=== PATIENT | male | born 1945 | race Caucasian/White ===

== ENCOUNTER 2017-11-07 10:43 | Emergency (ER) | payer MEDICARE ==
[~2017-11-07] VITALS: Ht 193 cm; Wt 95.0 kg
[2017-11-07] MEDS ORDERED: ALLO300T PO (11:03)
[2017-11-07] MEDS ORDERED: ATOR-2 PO (11:03)
[2017-11-07] MEDS ORDERED: IRBE1TAB13 PO (11:04)
[2017-11-07] MEDS ORDERED: CHOL2000 PO (11:04)
[2017-11-07] MEDS ORDERED: GABA-827 PO (11:04)
[2017-11-07] MEDS ORDERED: MULT-516 PO (11:05)
[2017-11-07] MEDS ORDERED: TURM500C7 PO (11:05)
[2017-11-07] MEDS ORDERED: OMEG-14 PO (11:06)
[2017-11-07] MEDS ORDERED: [UNRECOGNIZED DRUG - CODE] PO (11:06)
[2017-11-07] MEDS ORDERED: OMEG1CAP23 PO (11:06)
[2017-11-07] MEDS ORDERED: CYAN1TAB29 PO (11:07)
[2017-11-07] MEDS ORDERED: BIOT1TAB3 PO (11:07)
[2017-11-07 12:14] VITALS: BP 144/78
[2017-11-07] MEDS ORDERED: PLEASE ENTER ALLERGIES MC SCH (13:56)
[2017-11-07] MEDS ORDERED: ACETAMINOPHEN 325 MG TABLET ONE (13:56)
[2017-11-07] MEDS ORDERED: ACETAMINOPHEN 325 MG TABLET PO ONE (14:00)
== END 2017-11-07 14:23 | disposition home or self-care (01) ==
LOC: ED 11:48
DX: J20.8 Acute bronchitis due to other specified organisms (principal); J98.01 Acute bronchospasm; R19.7 Diarrhea, unspecified; B97.89 Other viral agents as the cause of diseases classified elsewhere
CPT/HCPCS: 71046; 99284

== ENCOUNTER → 2018-07-05 | Outpatient (CLI) | payer MEDICARE ==
[~2018-07-05] MED LIST: ALLO300T PO; ATOR-2 PO; BIOT1TAB3 PO; CHOL2000 PO; CYAN1TAB29 PO; GABA-827 PO; IRBE1TAB13 PO; MULT-516 PO; OMEG-14 PO; OMEG1CAP23 PO; TURM500C7 PO; [UNRECOGNIZED DRUG - CODE] PO
== END | disposition home or self-care (01) ==
LOC: CFH 15:15
PROVIDERS: ATTEND Family Medicine
DX: M48.061 Spinal stenosis, lumbar region without neurogenic claudication (principal); M54.42 Lumbago with sciatica, left side
CPT/HCPCS: 72148

== ENCOUNTER 2018-08-23 14:47 | Outpatient (CLI) | payer MEDICARE ==
[2018-08-23] MEDS ORDERED: GADOBUTROL 10 MMOL/10 ML VIAL ONE (16:18)
== END 2018-08-23 23:59 | disposition home or self-care (01) ==
LOC: CFH 14:47
PROVIDERS: ATTEND Urology
DX: C61 Malignant neoplasm of prostate (principal)
CPT/HCPCS: 72197; 82565; A9585

== ENCOUNTER → 2020-02-05 | Outpatient (CLI) | payer MEDICARE ==
[~2020-02-05] MED LIST changes: +ACID1TAB3 PO; +ACID1TAB7 PO; +ALLO100T30 PO; +ATOR20TA PO; +CEFT2PIG2 IV; +GABA300C10 PO; +MELA10TA7 PO; +TAMS-11 PO; +VALS1TAB29 PO; +VANC50SO PO
== END | disposition home or self-care (01) ==
LOC: RAD 09:35
PROVIDERS: ATTEND Internal Medicine Hematology & Oncology
DX: C61 Malignant neoplasm of prostate (principal); D68.59 Other primary thrombophilia; N40.0 Benign prostatic hyperplasia without lower urinary tract symptoms; N20.0 Calculus of kidney; M51.36 Other intervertebral disc degeneration, lumbar region; K57.90 Diverticulosis of intestine, part unspecified, without perforation or abscess without bleeding; N32.89 Other specified disorders of bladder
CPT/HCPCS: 71250; 74176; 78306; A9503

== ENCOUNTER 2021-02-20 19:43 | Emergency (ER) | payer MEDICARE ==
[~2021-02-20] VITALS: Ht 190.5 cm; Wt 99.5 kg
--- NOTE | 2021-02-20 20:26 | NUR ---
PT brought back from triage with chief complaint of fever, reported 103, diarrhea for few days. PT reports whole body stiffness. ERMD at bedside for eval
--- NOTE | 2021-02-20 20:55 | NUR ---
REPORT TO MARILYNN MCKEON
--- NOTE | 2021-02-20 21:02 | NUR ---
REPORT FROM RAJI MCKEON
[2021-02-20 21:15] LABS: ALANINE AMINOTRANSFERASE 41 U/L (12-78); ALBUMIN 3.7 g/dL (3.4-5.0); ANION GAP 7 mmol/L (5-15); CALCIUM 8.6 mg/dL (8.5-10.1); CHLORIDE 102 mmol/L (98-107); CREATININE 1.45 mg/dL (0.7-1.3)
[2021-02-20 21:17] LABS: ALKALINE PHOSPHATASE 68 U/L (45-117); BILIRUBIN,TOTAL 0.4 mg/dL (0.2-1.0); TOTAL PROTEIN 7.4 g/dL (6.4-8.2)
--- NOTE | 2021-02-20 21:29 | NUR ---
UA COLLECTED AND SENT TO LAB. HOME HEALTH SPECIALIST IN TO REDRAW
[2021-02-20] MEDS ORDERED: SODIUM CHLORIDE 0.9% 1,000ML IVBOLUS ONE (21:30)
[2021-02-20] MEDS ORDERED: SODIUM CHLORIDE FLUSH 10ML SYR IVF ONE (21:30)
[2021-02-20 21:48] LABS: MICROSCOPIC AUTO
[2021-02-20 21:51] LABS: MEAN CORPUSCULAR HEMOGLOBIN 33.9 pg (27.5-34.5); MEAN CORPUSCULAR HGB CONC 34.8 g/dL (33.2-36.2); MEAN PLATELET VOLUME 7.6 fL (7.4-10.4); PLATELET COUNT 141 x10^3/uL (130-400); RED BLOOD COUNT 3.81 x10^6/uL (4.38-5.82); RED CELL DISTRIBUTION WIDTH 12.8 % (9.4-14.8)
[2021-02-20 22:33] LABS: <PLATELET ESTIMATE> ADEQUATE; <PLT MORPHOLOGY> NORMAL PLT MORPH; <RBC MORPHOLOGY> NORMAL; BAND#(MANUAL) 0.49 x10^3/uL; BANDS%(MANUAL) 12 % (0-7); LYMPH#(MANUAL) 0.62 x10^3/uL (1-3.4); LYMPHS% (MANUAL) 15 % (22-44); MONOS#(MANUAL) 0.78 x10^3/uL (0.3-2.7); MONOS% (MANUAL) 19 % (2-9); REACTIVE LYMPHS # (MANUAL) 0.04 x10^3/uL (0-0); REACTIVE LYMPHS % (MANUAL) 1 % (0-0); SEG#(MANUAL) 2.17 x10^3/uL (1.8-6.8); SEGS% (MANUAL) 53 % (42-75)
[2021-02-20 22:34] LABS: PMNS WITH VACUOLES 1+
[2021-02-20] MEDS ORDERED: CEFTRIAXONE 1,000 MG in DEXTROSE 5% 50 ML IVPB ONE (23:00)
[2021-02-20 23:30] VITALS: BP 115/61
== END 2021-02-20 23:32 | disposition home or self-care (01) ==
LOC: ED 23:26
DX: U07.1 COVID-19 (principal); B34.9 Viral infection, unspecified; M79.10 Myalgia, unspecified site; R00.0 Tachycardia, unspecified; Z87.891 Personal history of nicotine dependence
CPT/HCPCS: 36415; 71045; 80053; 81001; 83605; 85025; 87040; 93005; 96361; 96365; 99285; J0696; J7030; U0003; U0005